=== PATIENT | female | born 1945 | race Caucasian/White ===

== ENCOUNTER 2016-06-05 17:44 | Emergency (ER) | payer MEDICARE, OTHER ==
--- NOTE | 2016-06-05 19:14 | ED ---
Lower Extremity - HPI Summary HPI Summary: 70 F w/ PMH of HTN presents with left leg swelling for a week. She denies any pain. She did have a hysterectomy a month ago. She denies any recent travel. She does not have a family history of blood clots. She denies any smoking history or history of cancer. She did not wear her compression stocks at home. She denies any trauma to the area or history of CHF. She denies any chest pain or SOB or palpitations. - History of Current Complaint Chief Complaint: EDExtremityUpper Stated Complaint: SWOLLEN LT KNEE-SENT BY DR TATE Time Seen by Provider: 06/05/16 18:52 Pain Intensity: 0 - Allergies/Home Medications Allergies/Adverse Reactions: Allergies Allergy/AdvReac Type Severity Reaction Status Date / Time Prochlorperazine Allergy See Comment Verified 05/25/16 14:59 [From Compazine] PMH/Surg Hx/FS Hx/Imm Hx Cardiovascular History: Reports: Hx Hypercholesterolemia - does not take medication, Hx Hypertension - ON MEDICATION Musculoskeletal History: Reports: Hx Arthritis - bilateral lower knees - Cancer History Hx Chemotherapy: No Hx Radiation Therapy: No - Surgical History Surgery Procedure, Year, and Place: Hysterectomy 2016 due to cancerous tumor. Appendectomy Hx Anesthesia Reactions: No - Immunization History Date of Tetanus Vaccine: 05/10/2016 Infectious Disease History: No Infectious Disease History: Denies: Traveled Outside the [place] in Last 30 Days - Family History Known Family History: Positive: Diabetes - Social History Alcohol Use: None Substance Use Type: Reports: None Hx Tobacco Use: No Smoking Status (MU): Never Smoked Tobacco Review of Systems Negative: Fever Negative: Chest Pain Negative: Shortness Of Breath Positive: Edema - of left leg All Other Systems Reviewed And Are Negative: Yes Physical Exam Triage Information Reviewed: Yes Vital Signs On Initial Exam: Initial Vitals Temp Pulse Resp BP Pulse Ox 97.6 F 80 16 151/74 98 06/05/16 18:16 06/05/16 18:16 06/05/16 18:16 06/05/16 18:16 06/05/16 18:16 Vital Signs Reviewed: Yes Appearance: Positive: Well-Appearing Skin: Positive: Warm, Dry Head/Face: Positive: Normal Head/Face Inspection Eyes: Positive: Normal, Conjunctiva Clear ENT: Positive: Normal ENT inspection, Pharynx normal, TMs normal Respiratory/Lung Sounds: Positive: Clear to Auscultation, Breath Sounds Present Cardiovascular: Positive: Normal, RRR Musculoskeletal: Positive: Strength/ROM Intact - of left leg, Edema Left - thigh , calf and foot, Other - good pulses, sensation grossly intact, capillary refill less <2 secs Diagnostics - Vital Signs Vital Signs Temp Pulse Resp BP Pulse Ox 06/05/16 18:16 97.6 F 80 16 151/74 98 - Laboratory Result Diagrams: 06/05/16 19:55 06/05/16 19:55 Lab Statement: Any lab studies that have been ordered have been reviewed, and results considered in the medical decision making process. - Ultrasound No standard instances Ultrasound Interpretation: Positive (See Comments) - Occlusive deep vein thrombosis from the left common femoral vein to the junction of the femoral vein and popliteal vein. Ultrasound Interpretation Completed By: Radiologist Lower Extremity Course/Dx - Course Course Of Treatment: 70 F presents with left leg swelling for one week. Only risk factor for DVT is recent surgery. Has no pain, chest pain, or SOB, swelling noted of entire leg, good pulses and capillary refill, no discolorization of skin, performed u/s and noted extension DVT of femoral vein, discussed with dr puga will treat with lovenox and have follow up with primary , warned to return to ED if develop chest pain or SOB, patient agrees with plan - Diagnoses Differential Diagnosis/HQI/PQRI: Positive: DVT, Fracture (Closed), Sprain, Strain, Other - chf Provider Diagnoses: Deep venous thrombosis of left femoral vein Discharge - Discharge Plan Condition: Stable Disposition: HOME Prescriptions: Enoxaparin(*) [Lovenox(*)] 60 mg SUBCUT Q12HR #14 syringe Patient Education Materials: Enoxaparin (By injection) Referrals: Barry Tate MD [Primary Care Provider] - Additional Instructions: Take Lovenox every 12 hours, refill will need to be filled by PCP Stop using any aspirin or ibuprofen can use Tylenol only for pain Follow up with primary care physician within 5 days Return to ED if develop any chest pain or SOB or any new or worsening symptoms
[2016-06-05 20:07] LABS: Hematocrit 34 % (35-47); Mean Corpuscular HGB Conc 33 g/dl (31-36); Mean Corpuscular Hemoglobin 28 pg (27-31); Mean Corpuscular Volume 86 fL (80-97); Mean Platelet Volume 7 um3 (7.4-10.4); Red Blood Count 3.91 10^6/ul (4.0-5.4); Red Cell Distribution Width 13 % (10.5-15); White Blood Count 7.5 10^3/ul (3.5-10.8)
--- NOTE | 2016-06-05 20:10 | RAD ---
HISTORY: Swollen left leg TECHNIQUE: Multiple transverse and longitudinal ultrasound images were obtained of the veins of the left lower extremity using grayscale, color Doppler, and spectral Doppler imaging with and without compression and with augmentation. FINDINGS: VEINS: Beginning at the left common femoral vein there is occlusive thrombus as far as the junction of the femoral vein and popliteal vein. There is little to no venous flow documented at these levels. There is partially occlusive thrombus of the popliteal vein. SOFT TISSUES: Grossly normal. No large popliteal fossa cyst was identified. IMPRESSION: Occlusive deep vein thrombosis from the left common femoral vein to the junction of the femoral vein and popliteal vein.
[2016-06-05 20:34] LABS: Albumin 4.1 g/dL (3.2-5.2); BUN/Creatinine Ratio 22.9 (8-20); Calcium 10.1 mg/dL (8.6-10.3); EGFR African American 106.7 (>60); Globulin 3.4 g/dL (2-4); Potassium 4.5 mmol/L (3.5-5.0); Total Bilirubin 0.3 mg/dL (0.2-1.0); Total Protein 7.5 g/dL (6.4-8.9)
[2016-06-05] MEDS ORDERED: Enoxaparin(*) 60 MG/0.6 ML SYR SUBCUT ONE (20:35)
[2016-06-05 21:09] VITALS: BP 148/70
== END 2016-06-05 21:08 | disposition home or self-care (01) ==
LOC: ED 17:44
DX: I82.412 Acute embolism and thrombosis of left femoral vein (principal); R60.0 Localized edema; Z86.79 Personal history of other diseases of the circulatory system
CPT/HCPCS: 36415; 80053; 83880; 85025; 85610; 99282; J1650

== ENCOUNTER 2023-01-19 13:16 | Inpatient (IN) ==
[2023-01-19] MEDS ORDERED: Heparin - STEMI 5,000 UNITS/ML 1 ml VIAL IV ONE (13:24)
[2023-01-19] MEDS ORDERED: nitroGLYCERIN DRIP 25,000 MCG/250 ML BTL ONE (13:26)
[2023-01-19] MEDS ORDERED: Iohexol 350 (CONTRAST) 200 ML MDV IV ONE ×2 (13:26→14:23)
[2023-01-19] MEDS ORDERED: Midazolam 5 mg/5 ml VIAL 1 mg/ml 5 ml VIAL (5 mg) ONE (13:26)
[2023-01-19] MEDS ORDERED: fentaNYL 100 mcg/2 ml 50 MCG/ML VIAL ONE (13:26)
[2023-01-19] MEDS ORDERED: Heparin 2 UNITS/ML 1000 mls 2,000 ML IV ONE (13:26)
[2023-01-19] MEDS ORDERED: Heparin 1,000 UNIT/ML 10 ml (10,000 UNITS) CATHLAB/DIALYSIS ONE (13:27)
[2023-01-19] MEDS ORDERED: Lidocaine 1% MPF 5 ML VIAL ONE (13:27)
[2023-01-19 13:31] LABS: ABS Basophils 0.1 10^3/uL (0.0-0.1); ABS Eosinophils 0.3 10^3/uL (0.0-0.5); ABS Lymphocytes 3.3 10^3/uL (1.0-4.8); ABS Neutrophils 4.7 10^3/uL (1.5-7.6); Eosinophil % 3.2 %; Hematocrit 40.3 % (35-45); Hemoglobin 13.5 g/dL (11.5-14.3); Lymphocyte % 35.3 %; Mean Corpuscular Hemoglobin 29.6 pg (27-33); Mean Corpuscular Hgb Conc 33.6 g/dL (31-36); Mean Corpuscular Volume 88.2 fL (80-97); Mean Platelet Volume 8.1 fL (7.5-11.2); Platelet Count 367 10^3/uL (150-450); Red Blood Count 4.57 10^6/uL (3.63-4.92); Red Cell Distribution Width 13.9 % (12-17); White Blood Count 9.5 10^3/uL (3.8-11.8)
[2023-01-19] MEDS ORDERED: Iohexol 350 (CONTRAST) 100 ML PAK IV ONE ×3 (13:33→14:23)
[2023-01-19 13:47] LABS: Albumin 4.2 g/dL (3.2-5.2); Albumin/Globulin Ratio 1.3 (1-3); Calcium 9.5 mg/dL (8.6-10.3); Creatinine, Serum 0.91 mg/dL (0.51-0.95); Globulin 3.2 g/dL (2-4); Potassium 3.9 mmol/L (3.5-5.0); Total Bilirubin 0.5 mg/dL (0.2-1.0); Total Protein 7.4 g/dL (6.4-8.9); eGFR CKD-EPI 65.4 (>60)
[2023-01-19 13:57] LABS: Activated Partial Thrombo Time 23.1 seconds (26.0-38.0); INR 0.97 (0.83-1.13)
[2023-01-19] MEDS ORDERED: Bivalirudin 250 MG VIAL ONE (14:04)
[2023-01-19] MEDS ORDERED: Phenylephrine 40 mcg/mL 10mL (400mcg) SYRINGE ONE (14:40)
[2023-01-19] MEDS ORDERED: Norepinephrine 16MCG/ML BAGD5W 4,000 MCG/250 ML BAG IV SCH (18:00)
[2023-01-19 20:05] VITALS: BP 101/62
== END 2023-01-20 18:30 | disposition short-term general hospital (02) | DRG 280 ==
LOC: ED 13:16 → ICU 13:19 → CHICATH 13:35 → SUATTDRO 16:58 → ICU 16:58 → CHICATH 18:30
PROVIDERS: ADMIT Emergency Medicine; ATTEND Internal Medicine